=== PATIENT | male | born 1980 | race Two or more races ===

== ENCOUNTER 2025-01-10 08:53 | Emergency (ER) | payer MEDICAID, SELFPAY ==
[2025-01-10 09:04] VITALS: BP 141/100; PULSE 80; RESP 19; TEMP 36.9; O2SAT 97; BMI 31.9
--- NOTE | 2025-01-10 09:10 | EKG_ITS ---
[facility] Test Date: 2025-01-10 Pat Name: SERENITY CORNELL Department: Room: - Gender: Male Copyright Clerk: : 1980 Requested By: Gualberto Cox Order Number: [id number] Reading MD: Gualberto Cox Measurements Intervals Beeler Rate: 79 P: 24 AK: 164 QRS: -14 QRSD: 105 T: -4 QT: 338 QTc: 387 Interpretive Statements SINUS RHYTHM VOLTAGE CRITERIA FOR LVH [MEETS CRITERIA IN ONE OF: R(aVL), S(V1), R(V5), R(V5/V6)+S(V1)] No previous ECG available for comparison /store/S0/[id number].pdf
--- NOTE | 2025-01-10 09:10 | XR_ITS ---
Examination: PA lateral chest 2 views TECHNIQUE: Upright PA lateral chest 2 views Exam date and time: January 10, 2025 0919 hours Comparison October 16, 2009 INDICATIONS: Chest pain 4 days FINDINGS: Contracted likely inflammatory nodule in the right upper lobe compared to pneumonic process 2008, the nodule in the right upper lobe measures 12 mm No pneumonia No pulmonary edema Normal heart size IMPRESSION: Recommend 3 month follow-up PA lateral chest to document stability of 12 mm pulmonary nodule right upper lobe
--- NOTE | 2025-01-10 09:11 | EDNOTE_ITS ---
<Statement entered by Yudith Ag MD - 01/10/25 17:30> As co-signing physician, I was present and available for consult prn. I concur with the plan and care as documented by the midlevel provider. ED Chest Pain RME/HPI General Chief Complaint: Chest Pain Stated Complaint: CHEST PAIN, PAIN TO TOP OF HEAD Time Seen by Provider: 01/10/25 09:12 Source: patient Arrival date/time: 01/10/25 08:53 44-year-old male with a history of hyperlipidemia presents to the emergency room with a chief complaint of left-sided 4 out of 10 chest pain that radiates to the right side of his chest x 4 days. Mode of arrival: ambulatory Limitations: no limitations Related Data Previous Rx's ?Medication ?Instructions ?Recorded cyclobenzaprine 5 mg tablet 5 mg PO TID PRN muscle spa sm #20 07/26/21 tabs methylprednisolone 4 mg tablets in 4 mg PO .as directe d #21 tabs 07/26/21 a dose pack (Medrol (Raul)) naproxen 500 mg tablet 500 mg PO BID PRN pain #30 t abs 07/26/21 ibuprofen 800 mg tablet 800 mg PO TID PRN pain #30 t abs 06/27/22 Allergies Allergy/AdvReac Type Severity Reaction Status Date / Time No Known Allergies Allergy Verified 07/26/21 12:57 Review of Systems Review of Systems Systems Reviewed: All systems reviewed, normal except as documented Constitutional Constitutional: Reports system reviewed and no additional complaints, except as documented, Denies fatigue, Denies fever(s), Denies headache(s) and Denies weakness Eyes Eyes: Reports system reviewed and no additional complaints, except as documented, Denies blurry vision and Denies change in vision ENT Ears, Nose, Mouth, and Throat: Reports system reviewed and no additional complaints, except as documented, Denies otalgia, Denies headache(s), Denies nasal congestion, Denies throat swelling and Denies vertigo Cardiovascular Cardiovascular: Reports system reviewed and no additional complaints, except as documented, Reports chest pain, Denies dyspnea, Denies dyspnea on exertion and Reports radiating jaw, neck or arm pain Respiratory Respiratory: Reports system reviewed and no additional complaints, except as documented, Denies chest congestion, Denies cough, Denies dyspnea, Denies dyspnea on exertion and Denies wheezing Gastrointestinal Gastrointestinal: Reports system reviewed and no additional complaints, except as documented, Denies abdominal pain, Denies cramping, Denies nausea and Denies vomiting Genitourinary Genitourinary: Reports system reviewed and no additional complaints, except as documented, Denies dysuria and Denies hematuria Musculoskeletal Musculoskeletal: Reports system reviewed and no additional complaints, except as documented and Denies back pain Integumentary/Breasts Skin/Breast: Reports system reviewed and no additional complaints, except as documented and Denies wounds Neurologic Neurologic: Reports system reviewed and no additional complaints, except as documented, Denies confusion, Denies headache(s), Denies lack of coordination, Denies vertigo and Denies weakness Psychiatric Psychiatric: Reports system reviewed and no additional complaints, except as documented, Denies anxiety, Denies confusion, Denies depression, Denies paranoia, Denies suicidal ideation and Denies tactile hallucinations Endocrine Endocrine: Reports system reviewed and no additional complaints, except as documented and Denies fatigue Hematologic/Lymphatic Hematologic/Lymphatic: Reports system reviewed and no additional complaints, except as documented and Denies lymphadenopathy Allergic/Immunologic Allergic/Immunologic: Reports system reviewed and no additional complaints, except as documented, Denies throat swelling, Denies urticaria and Denies wheezing Past Medical History Social History SMOKING STATUS: Never smoker ED Exam General Limitations: Present no limitations General appearance: Present alert and in no apparent distress Head Head exam: Present atraumatic Eye Eye exam: Present normal appearance, PERRL and EOMI ENT ENT exam: Present normal exam, normal oropharynx and mucous membranes moist Neck Neck exam: Present normal inspection, full ROM and trachea midline Chest Chest inspection: Present normal inspection and symmetric chest wall rise Respiratory Respiratory exam: Present normal lung sounds bilaterally; Absent respiratory distress, wheezes, stridor, accessory muscle use or prolonged expiratory phase Cardiovascular Cardiovascular exam: Present regular rate, normal rhythm, normal heart sounds, +S1 and +S2; Absent bradycardia, tachycardia, irregular rhythm, systolic murmur or diastolic murmur Abdominal Exam Abdominal exam: Present soft and normal bowel sounds; Absent distention, tenderness or guarding Extremities Exam Extremities exam: Present normal inspection and full ROM Back Exam Back exam: Present normal inspection and full ROM Neurological Exam Neurological exam: Present alert, oriented X3 and CN II-XII intact Psychiatric Psychiatric exam: Present normal affect and normal mood Skin Skin exam: Present warm, dry, intact and normal color Course Quality Measures none Orders Category Date Time Status EKG (ED ONLY) *Do not use* NOW Care 01/10/25 09:10 Completed EKG (ED Only) Stat Exams 01/10/25 09:10 Draft XR chest 2V Stat Exams 01/10/25 09:10 Completed B-Type Natriuretic Peptide Stat Lab 01/10/25 09:30 Completed CBC Stat Lab 01/10/25 09:30 Completed Comprehensive Metabolic Panel Stat Lab 01/10/25 09:30 Completed Troponin I Stat Lab 01/10/25 09:30 Completed cloNIDine HCL [Catapres] Med 01/10/25 09:11 Discontinued 0.1 mg PO X1 ONE Vital Signs Vital signs: Vital Signs Temperature 98.5 F 01/10/25 09:04 Pulse Rate 80 01/10/25 09:04 Respiratory Rate 19 01/10/25 09:04 Blood Pressure 141/100 H 01/10/25 09:04 Pulse Oximetry (%) 97 01/10/25 09:04 Oxygen Delivery Method Room Air 01/10/25 09:04 O2 saturation 97% within normal limits Chest Pain MDM Narrative MDM Narrative:: 44-year-old male with a history of hyperlipidemia presents to the emergency room with a chief complaint of left-sided 4 out of 10 chest pain that radiates to the right side of his chest x 4 days. Patient is hemodynamically stable and in no apparent distress. Physical examination shows clear bilateral lung sounds with no wheezing or abnormal breath sounds. The patient has strong and regular pulses. There are no murmurs no JVD. EKG was completed and shows normal sinus rhythm at [address] deviation. CBC and CMP were negative. Troponin was negative Chest x-ray was negative for any pneumonic infiltrates however there was a 12 mm pulmonary nodule to the right upper lobe. Patient was educated to follow-up with primary care provider regarding this pulmonary nodule as repeat imaging will be needed. Patient was educated to follow-up with primary care provider and return to the emergency room for any evidence of worsening signs or symptoms Patient data External records reviewed:: [facility] previous records Clinical information provided by:: patient Social determinants that could affect healthcare access:: none Patient has the following chronic illnesses:: No chronic illness How is presenting disease/condition affected by chronic disease/condition?: no chronic disease Evaluation data The following diagnostics were reviewed and interpreted by me:: lab results and radiology exam(s) Lab and/or radiology exams considered but not ordered:: Labs and radiology exams considered and ordered Interpretation Summary: Chest [id number]: Contracted likely inflammatory nodule in the right upper lobe compared to pneumonic process 2008, the nodule in the right upper lobe measures 12 mm No pneumonia No pulmonary edema Normal heart size IMPRESSION: Recommend 3 month follow-up PA lateral chest to document stability of 12 mm pulmonary nodule right upper lobe Medications / Prescriptions Medications or Prescriptions considered but not ordered:: N/A Medication administrations:: Medication Administration History Discontinued Medications Clonidine (Clonidine Hcl 0.1 Mg Tablet) 0.1 mg PO X1 ONE Stop: 01/10/25 09:12 Last Admin: 01/10/25 09:43 Dose: Not Given Documented By: [facility] Non-Admin Reason: Vital Signs N/A Consultations Consultation(s) initiated? (list below): No Diagnosis Chest Pain Differential Diagnosis: stable angina, atypical chest pain, st elevation myocardial infarction, costochondritis and chest pain Most likely diagnosis given after review of the tests above:: Chest pain Admission Indicated Admission indicated?: not indicated Admission Request Was there a request for admission?: No Disposition Plan Disposition Plan: Discharge Discharge Attestation Discharge Attestation: The patient and all family members were given an opportunity to ask questions and understood the discharge instructions. Discharge instructions specifically effects, indications for sooner follow up or return to the emergency department, and the expected course of current diagnosis. Patient condition: Stable Discharge Plan Plan Patient Disposition: HOME (Self Care) Disposition Comment: Stable Prescriptions/Referrals Prescriptions/Med Rec: No Action naproxen 500 mg tablet 500 mg PO BID PRN (Reason: pain) Qty: 30 0RF methylprednisolone [Medrol (Raul)] 4 mg tablets,dose pack 4 mg PO .as directed Qty: 21 0RF cyclobenzaprine 5 mg tablet 5 mg PO TID PRN (Reason: muscle spasm) Qty: 20 0RF ibuprofen 800 mg tablet 800 mg PO TID PRN (Reason: pain) Qty: 30 0RF Referrals: No Primary/Family,Physician [Primary Care Provider] - In 1 week Problem List Clinical Impression: Chest pain, non-cardiac Patient/Caregiver Discharge Instructions Education Materials: ED Chest Pain, Noncardiac Additional Instructions: Por favor, consulte con hanna m?dico de cabecera en las pr?ximas 24 a 48 horas. Hanna examen card?aco fue negativo. En jan momento, hanna dolor en el pecho no est? relacionado con el coraz?n. Hanna radiograf?a de t?rax encontr? un n?dulo pulmonar. Hanna m?dico de cabecera deber? realizar un seguimiento de jan problema. Adjunto roque copia de hanna radiograf?a de t?rax. Ll?vesela a hanna m?dico de cabecera para que le d? un tratamiento adicional a jan n?dulo. Si hay alguna evidencia de empeoramiento de los signos o s?ntomas, regrese a la srinivas de emergencias de inmediato. Print Language: Cypriot Stand Alone Forms: Nella Award Info., Patient Portal Info Letter PA/STEWARD/STEWARDESS THIRD CLASS Supervising Physician PA/STEWARD/STEWARDESS THIRD CLASS Supervising Physician: Dr. AG
[2025-01-10 09:39] LABS: Basophils % (Auto) 1 % (0-2.5); Eosinophils # (Auto) 0.1 Thou/mm3 (0.0-0.5); Eosinophils % (Auto) 2 % (0-10); Hematocrit 44.7 % (41.0-53.0); Hemoglobin 15.3 g/dL (13.5-16.0); Immature Granulocytes % (Auto) 0 % (0-0); Immature Granulocytes Auto 0.01 Thou/mm3 (0.00-0.00); Lymphocytes # (Auto) 1.5 Thou/mm3 (1.0-4.8); Lymphocytes % (Auto) 34 % (10-50); Mean Corpuscular HGB Conc 34.2 g/dl (31.0-37.0); Mean Corpuscular Hemoglobin 30.4 pg (25.0-35.0); Mean Corpuscular Volume 89 fL (80-100); Monocytes # (Auto) 0.5 Thou/mm3 (0.0-0.8); Monocytes % (Auto) 11 % (0-12); Neutrophils # (Auto) 2.4 Thou/mm3 (1.8-7.7); Neutrophils % (Auto) 53 % (37-80); Nucleated Red Blood Cell % 0 /100 WBC (0); Platelet Count 237 Thou/mm3 (140-440); RDW Standard Deviation 38.7 fL (35.1-43.9); Red Blood Count 5.04 Miln/mm3 (4.50-5.90); White Blood Count 4.5 Thou/mm3 (3.8-10.6)
[2025-01-10 09:43] VITALS: BP 150/79; PULSE 80
--- NOTE | 2025-01-10 09:45 | PC.NURSE ---
FRED GATES NOTIFIED OF BLOOD PRESSURE OF 150/92, FRED GATES ORDERED TO NOT GIVE CLONIDINE AT THIS TIME.
[2025-01-10 09:56] LABS: Alanine Aminotransferase 46 U/L (10-49); Albumin, Serum 4.6 gm/dL (3.5-5.0); Albumin/Globulin Ratio 1.8 (1.2-2.2); Alkaline Phosphatase 73 U/L (46-116); Anion Gap 3 (7-16); Aspartate Amino Transferase 27 U/L (0-34); BUN/Creatinine Ratio 22 Ratio (12-20); Bilirubin,Total 1.4 mg/dL (0.3-1.2); Blood Urea Nitrogen 13 mg/dL (9-23); Calcium 9.9 mg/dL (8.3-10.6); Calcium (Corrected) 9.9 mg/dL (8.5-10.1); Carbon Dioxide 28.1 mMol/L (20.0-31.0); Chloride 107 mMol/L (98-107); Creatinine (Component) 0.6 mg/dL (0.6-1.3); Estimated Creatinine Clearance 164.9 mL/min (>60); Globulin 2.6 gm/dL (2.3-3.5); Glucose 123 mg/dL (74-106); Osmolality,Calculated 276 (275-295); Potassium 4.3 mMol/L (3.4-5.1); Sodium 138 mMol/L (136-145); Total Protein 7.2 gm/dL (5.7-8.2); Troponin I < 0.002 ng/mL (0.0-0.045); eGFR > 60 See Note
[2025-01-10 10:05] LABS: B-Type Natriuretic Peptide < 20 pg/mL (0-100)
== END 2025-01-10 11:45 | disposition home or self-care (01) ==
PROVIDERS: Emergency Provider Nurse Practitioner Family
DX: R07.89 Other chest pain (principal); E78.5 Hyperlipidemia, unspecified
CPT/HCPCS: 36415; 71046; 80053; 83880; 84484; 85025; 93005; 99283

== ENCOUNTER → 2025-05-04 | Outpatient (CLI) | payer MEDICAID, SELFPAY ==
--- NOTE | 2025-05-04 14:22 | XR_ITS ---
Examination: PA lateral chest 2 views TECHNIQUE: Upright PA lateral chest 2 views Date and time: May 04, 2025 1429 hours Compared to chest films dating to October 16, 2009 FINDINGS: 9 mm pulmonary nodule right upper lobe, likely residua of the pneumonia in the right upper lobe on chest film October 16, 2009 No current pneumonia or pulmonary edema Normal heart size IMPRESSION: No active disease
== END | disposition home or self-care (01) ==
PROVIDERS: PCP Physician Assistant; Referring Provider Physician Assistant; Visit Provider Physician Assistant
DX: R91.1 Solitary pulmonary nodule (principal)
CPT/HCPCS: 71046